=== PATIENT | female | born 1970 | race American Indian/Alaskan Native ===

== ENCOUNTER 2017-05-06 17:33 | Emergency (ER) | payer OTHER, BC ==
[2017-05-06 17:33] VITALS: BMI 40.7
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
[2017-05-06 19:26] VITALS: BP 113/67; PULSE 60; RESP 16; TEMP 98.5; O2SAT 96
--- NOTE | 2017-05-07 08:12 | RAD ---
PROCEDURE: Right Hip with pelvis Radiographs. HISTORY: hip pain COMPARISON: None. FINDINGS: BONES: Pelvic ring appears intact limited degenerate change identified in the bilateral hip joints. No suspicious lytic or blastic change. Pubic symphysis appears intact. There is no fracture at the right hip. JOINTS: No dislocation of the right hip. SOFT TISSUES: Inferior pelvic soft tissues are identified bilaterally which may reflect phleboliths. OTHER FINDINGS: None. IMPRESSION: No fracture dislocation of the right hip is appreciate with the pelvic ring appearing intact. Mild bilateral hip joint degenerative changes are identified.
--- NOTE | 2017-05-07 08:16 | RAD ---
PROCEDURE: Radiographs of the Lumbar Spine. HISTORY: back pain COMPARISON: No prior. FINDINGS: BONES: Normal lumbar curvature is appreciate however the frontal view suggests limited levoscoliosis or possible simulated scoliosis related to guarding. No suspicious lytic or blastic change. No spondylolisthesis identified DISC SPACES: Mild disc height loss is seen at L3-4 compatible degenerative disc disease. OTHER FINDINGS: None. IMPRESSION: Limited degenerative disc disease L3-4. Potential limited levoscoliosis versus scarring. No definite fracture or spondylolisthesis.
== END 2017-05-06 19:51 | disposition home or self-care (01) ==
LOC: ED 17:33
DX: M25.551 Pain in right hip (principal); M54.5 Low back pain
CPT/HCPCS: 72110; 73502; 96372; 99284; J1885

== ENCOUNTER 2018-03-29 20:58 | Inpatient (IN) | payer BC ==
--- NOTE | 2018-03-29 21:51 | ED PDOC ---
Arrival/HPI <Gonsalo Schofield - Last Filed: 03/30/18 00:03> - General Historian: Patient <Gianfranco Gautam - Last Filed: 03/30/18 14:31> - General Chief Complaint: Lower Extremity Problem/Injury Time Seen by Provider: 03/29/18 21:40 - History of Present Illness Narrative History of Present Illness (Text): 03/29/18 21:48 48 y/o female, pmh including gastritis/iron deficiency anemia, allergic to terbinafine, c/o shortness of breath x 2 weeks with chest pain and bilateral lower leg swelling x 6 days. Pt. stated that she woke up 6 days ago with bilateral lower extremity swelling and pain, worsened on the left lower extremity, no skin discoloration, no bruising, no rash, no numbness or tingling. Pt. also stated that she has been having chest pain and shortness of breath x 2 weeks, seen by the air quality engineer Dr. Palmer and refer to see the manager plant with normal PFT as per patient. Pt. stated that she was seen at the [facility] and left because they didn't perform the venuous doppler. Pt. has no other medical or psychological complaints. Pt. has no chest pain today. (Gianfranco Gautam) Past Medical History - Provider Review Nursing Documentation Reviewed: Yes - Tetanus Immunization Tetanus Immunization: Unknown - Past Medical History Past Medical History: No Previous - Cardiac Hx Cardiac Disorders: Yes Other/Comment: "PLEBOLITHS" - Pulmonary Hx Bronchitis: Yes Hx Sleep Apnea: Yes - Neurological Hx Neurological Disorder: Yes Hx Vertigo: Yes - HEENT Hx HEENT Disorder: No - Renal Hx Renal Disorder: No - Endocrine/Metabolic Hx Endocrine Disorders: No - Hematological/Oncological Hx Anemia: Yes - Integumentary Hx Dermatological Disorder: No - Musculoskeletal/Rheumatological Hx Arthritis: Yes - Gastrointestinal Hx Diverticulitis: Yes Hx Gastritis: Yes Hx Gastrointestinal Ulcer: Yes - Genitourinary/Gynecological Hx Genitourinary Disorders: Yes Other/Comment: UTERINE FIBROIDS - Psychiatric Hx Psychophysiologic Disorder: No Hx Substance Use: No - Surgical History Other/Comment: myomectomy - Anesthesia Hx Anesthesia: Yes Hx Anesthesia Reactions: No Hx Malignant Hyperthermia: No - Suicidal Assessment Feels Threatened In Home Enviroment: No <Gianfranco Gautam - Last Filed: 03/30/18 14:31> Family/Social History - Physician Review Nursing Documentation Reviewed: Yes Family/Social History: Unknown Family HX Smoking Status: Never Smoked Hx Alcohol Use: Yes Hx Substance Use: No Hx Substance Use Treatment: No <Gianfranco Gautam - Last Filed: 03/30/18 14:31> Allergies/Home Meds <Gonsalo Schofield - Last Filed: 03/30/18 00:03> <Gianfranco Gautam - Last Filed: 03/30/18 14:31> Allergies/Adverse Reactions: Allergies avocado Allergy (Verified 03/29/18 21:20) ANAPHYLAXIS terbinafine [From Lamisil] Allergy (Verified 03/29/18 21:20) SWELLING Home Medications: Home Meds Medication Instructions Recorded Confirmed Iron Ps Cmplx/Vit B12/FA 1 cap PO DAILY 03/29/18 03/29/18 [Poly-Iron 150 Forte 25 Mcg-1 mg-150 mg] Pantoprazole Sodium [Protonix] 40 mg PO DAILY 03/29/18 03/29/18 Review of Systems - Review of Systems Constitutional: absent: Fatigue, Fevers Eyes: absent: Vision Changes ENT: absent: Hearing Changes Respiratory: SOB. absent: Cough Cardiovascular: Chest Pain, Edema Gastrointestinal: absent: Abdominal Pain, Nausea, Vomiting Musculoskeletal: absent: Arthralgias, Back Pain Skin: absent: Rash, Pruritis Psychiatric: absent: Anxiety, Depression, Suicidal Ideation <Gianfranco Gautam - Last Filed: 03/30/18 14:31> Physical Exam Vital Signs Reviewed: Yes Temperature: Afebrile Blood Pressure: Normal Pulse: Regular Respiratory Rate: Normal Appearance: Positive for: Well-Appearing, Non-Toxic, Comfortable Pain Distress: None Mental Status: Positive for: Alert and Oriented X 3 - Systems Exam Head: Present: Atraumatic, Normocephalic Pupils: Present: PERRL Extroacular Muscles: Present: EOMI Conjunctiva: Present: Normal Mouth: Present: Moist Mucous Membranes Pharnyx: Present: Normal. No: ERYTHEMA, EXUDATE, TONSILS ENLARGED Nose (External): Present: Atraumatic. No: Abrasion, Contusion, Laceration, Lesions Nose (Internal): Present: Normal Inspection, No Active Bleeding. No: Rhinorrhea , Septal Hematoma, Epistaxis Neck: Present: Normal Range of Motion, Trachea Midline. No: Meningeal Signs, MIDLINE TENDERNESS, Paraspinal Tenderness, Lymphadenopathy Respiratory/Chest: Present: Clear to Auscultation, Good Air Exchange. No: Respiratory Distress, Accessory Muscle Use, Wheezes, Decreased Breath Sounds, Rales, Retracting, Rhonchi Cardiovascular: Present: Regular Rate and Rhythm, Normal S1, S2, Other (there is no pedal edema). No: Murmurs Abdomen: No: Tenderness, Distention, Peritoneal Signs, Rebound, Guarding Back: Present: Normal Inspection Upper Extremity: Present: Normal Inspection. No: Cyanosis, Edema Lower Extremity: Present: Normal Inspection, CALF TENDERNESS (left calf), NORMAL PULSES, Normal ROM, Kimberly's Sign (Left calf), Neurovascularly Intact, Capillary Refill < 2 s. No: Edema, Tenderness, Swelling, Deformity, Temperature Abnormalties Neurological: Present: GCS=15, CN II-XII Intact, Speech Normal, Motor Func Grossly Intact, Gait Normal, Memory Normal Skin: Present: Warm, Dry, Normal Color. No: Rashes Psychiatric: Present: Alert, Oriented x 3, Normal Insight, Normal Concentration <Gianfranco Gautam - Last Filed: 03/30/18 14:31> Vital Signs Temp Pulse Resp BP Pulse Ox 03/30/18 01:40 98.2 F 82 16 118/73 98 03/29/18 23:58 78 16 120/64 98 03/29/18 21:32 98.5 F 77 18 123/77 97 Medical Decision Making <Gonsalo Schofield - Last Filed: 03/30/18 00:03> - Lab Interpretations I have reviewed the lab results: Yes - RAD Interpretation Heel Slugger: Radiologist - EKG Interpretation Interpreted by ED Physician: Yes Type: 12 lead EKG <Gianfranco Gautam - Last Filed: 03/30/18 14:31> ED Course and Treatment: 03/29/18 22:05 Differential: DVT vs. PE Vs. Pneumonia vs. CHF vs. Electrolyte imbalance vs. rhabdomylosis -Labs/cardiac enzyme/dimer/CK/ua -Bilateral LE Venuous doppler -CXR -EKG -manager med surg -Observe and reassess 03/30/18 00:14 -Urine hcg is negative -EKG: NSR @ 67 BPM, no ST elevation or depression, no T wave inversion. -Bilateral lower extremities venuous doppler: as per preliminary report, no acute DVT -Chest xray show no active disease -CTA angiogram There is pulmonary embolism involving the right lower lobe segmental branches seen from image [id number] series 3. And from image 71 -74. -Labs show no acute findings -Troponin is negative -BNP is negative -Dimer 469, CTA added -UA ordered and pending -Pt. has stool coloration or rectal bleeding, Lovenox ordered. -All labs/radiology results discussed with the patient including the diagnosis, agreed to be admitted, pmd is Dr. Jan Santana from [place], [place]. Page out to Dr. Buenrostro -Pt. needs to be admitted for the anticoagulation and the cause of this hypercoagulable disease. 03/30/18 00:24 -Dr. Schofield spoke to Dr. Buenrostro, I spoke to the medical delivery technician, discussed about the case/labs/radiology result, agreed on lovenox and admission. (Gianfranco Gautam) - Lab Interpretations Lab Results: 03/29/18 22:06 03/29/18 22:06 Lab Results 03/29/18 22:06: NT-Pro-B Natriuret Pep 19.4 03/29/18 22:06: WBC 5.6 D, RBC 4.55, Hgb 9.9 L, Hct 32.5 L, MCV 71.4 L D, MCH 21.8 L, MCHC 30.5 L, RDW 16.9 H, Plt Count 300, MPV 10.3, Gran % 53.6, Lymph % ( Auto) 31.3, [place] % (Auto) 10.9 H, Eos % (Auto) 3.8, Baso % (Auto) 0.4, Gran # 3.00, Lymph # (Auto) 1.8, [place] # (Auto) 0.6, Eos # (Auto) 0.2, Baso # (Auto) 0.02 03/29/18 22:06: Sodium 139, Potassium 4.1, Chloride 104, Carbon Dioxide 24, Anion Gap 15, BUN 13, Creatinine 1.0, Est GFR ( Amer) > 60, Est GFR (Non- Af Amer) 60, Random Glucose 92, Calcium 9.3, Total Bilirubin 0.3, AST 24, ALT 34 , Alkaline Phosphatase 68, Lactate Dehydrogenase 506, Total Creatine Kinase 107 , Troponin I < 0.01, Total Protein 8.0, Albumin 4.1, Globulin 3.9, Albumin/ Globulin Ratio 1.1 03/29/18 22:06: PT 12.4, INR 1.09, APTT 28.1, D-Dimer, Quantitative 469 H - RAD Interpretation Radiology Orders: 03/29/18 21:50 CHEST PORTABLE [RAD] Stat DUPLEX LOWER EXTRM VEIN BILAT [US] Stat 03/29/18 22:31 ANGIO CHEST PE PROTOCOL [CT] Stat Bilateral lower extremities venuous doppler: as per preliminary report, no acute DVT Chest xray: no active disease CTA Chest: Pulmonary arteries: There is pulmonary embolism involving the right lower lobe segmental branches seen from image 53-55 series 3. And from image 71 -74. Aorta: No acute findings. No thoracic aortic aneurysm. Lungs: Unremarkable. No mass. No consolidation. Pleural space: Unremarkable. No significant effusion. No pneumothorax. Heart: Unremarkable. No cardiomegaly. No significant pericardial effusion. No evidence of RV dysfunction. Bones/joints: No acute fracture. No dislocation. Soft tissues: Unremarkable. Lymph nodes: Unremarkable. No enlarged lymph nodes. IMPRESSION: There is pulmonary embolism involving the right lower lobe segmental branches seen from image 53-55 series 3. And from image 71 -74. Thank you for allowing us to participate in the care of your patient. Dictated and Authenticated by: Bouchra June MD 03/29/2018 11:54 PM Eastern Time ([place] & [place]) (Gianfranco Gautam) - EKG Interpretation EKG Interpretation (Text): 03/29/18 23:55 -EKG: NSR @ 67 BPM, no ST elevation or depression, no T wave inversion. (Gianfranco Gautam) - Medication Orders Current Medication Orders: Acetaminophen (Tylenol 325mg Tab) 650 mg PO Q6H PRN PRN Reason: Pain, moderate (4-7) Amoxicillin (Amoxil 500 Mg Cap) 1,000 mg PO Q12 SARY PRN Reason: Protocol Stop: 04/12/18 22:01 Last Admin: 03/30/18 11:41 Dose: 1,000 mg Atorvastatin Calcium (Lipitor) 40 mg PO DIN SARY Clarithromycin (Biaxin Filmtab) 500 mg PO Q12 SARY PRN Reason: Protocol Stop: 04/12/18 22:01 Last Admin: 03/30/18 12:22 Dose: 500 mg Docusate Sodium (Colace) 100 mg PO TID [facility] Last Admin: 03/30/18 11:42 Dose: 100 mg Last Bowel Movement Document 03/30/18 11:42 [facility] (Rec: 03/30/18 11:42 [id number] Last Bowel Movement Last Bowel Movement 03/29/18 Enoxaparin Sodium (Lovenox) 115 mg SC Q12H SARY PRN Reason: Protocol Furosemide (Lasix) 20 mg IVP DAILY [facility] Last Admin: 03/30/18 11:39 Dose: 20 mg MAR Blood Pressure Document 03/30/18 11:39 SG (Rec: 03/30/18 11:39 SG [id number]) Blood Pressure Blood Pressure (100/60-150/90) 108/62 IVP Administration Document 03/30/18 11:39 SG (Rec: 03/30/18 11:39 SG [id number]) Charges for Administration # of IVP Administrations 1 Iron Sucrose 200 mg/ Sodium (Chloride) 110 mls @ 110 mls/hr IVPB DAILY SAYR Stop: 04/03/18 10:59 Last Admin: 03/30/18 11:48 Dose: 110 mls/hr eMAR Start Stop Document 03/30/18 11:48 [facility] (Rec: 03/30/18 11:48 [id number][facility] Intravenous Solution Start Date 03/30/18 Start Time 11:48 End Date 03/30/18 End time 12:55 Total Infusion Time 67 Levalbuterol HCl (Xopenex) 0.63 mg IH [id number] [facility] Last Admin: 03/30/18 14:09 Dose: Not Given Non-Admin Reason: Patient Refused Pantoprazole Sodium (Protonix Ec Tab) 40 mg PO BID [facility] Last Admin: 03/30/18 08:20 Dose: 40 mg Polyethylene Glycol (Miralax) 17 gm PO DAILY [facility] Last Admin: 03/30/18 11:41 Dose: 17 gm Potassium Chloride (K-Dur 20 Meq Er Tab) 20 meq PO BRK [facility] Last Admin: 03/30/18 11:41 Dose: 20 meq Discontinued Medications Enoxaparin Sodium (Lovenox) 115 mg SC STAT STA PRN Reason: Protocol Stop: 03/30/18 00:12 Last Admin: 03/30/18 00:43 Dose: 115 mg Subcutaneous Administrations Document 03/30/18 00:43 IT (Rec: 03/30/18 00:44 IT [id number]) Injection Site MAR Injection Site Left Abdomen Charges for Administration # of Subcutaneous Administrations 1 Metronidazole (Flagyl) 250 mg PO Q6H SARY PRN Reason: Protocol Last Admin: 03/30/18 02:45 Dose: Not Given Non-Admin Reason: Nausea Metronidazole (Flagyl) 250 mg PO Q6H [facility] PRN Reason: Protocol Last Admin: 03/30/18 05:25 Dose: 250 mg Multivitamins (Thera Tab) 1 tab PO 0800 [facility] Last Admin: 03/30/18 08:51 Dose: 1 tab Pantoprazole Sodium (Protonix Ec Tab) 40 mg PO 0600 [facility] - PA / PRODUCTION RECORDER / Resident Statement ADRIANE has reviewed & agrees with the documentation as recorded. ADRIANE has examined the patient and agrees with the treatment plan. <Gonsalo Schofield - Last Filed: 03/30/18 00:03> - PA / PRODUCTION RECORDER / Resident Statement ADRIANE has reviewed & agrees with the documentation as recorded. ADRIANE has examined the patient and agrees with the treatment plan. <Gianfranco Gautam - Last Filed: 03/30/18 14:31> Disposition/Present on Arrival <Gonsalo Schofield - Last Filed: 03/30/18 00:03> - Present on Arrival Any Indicators Present on Arrival: No History of DVT/PE: No History of Uncontrolled Diabetes: No Urinary Catheter: No History of Decub. Ulcer: No History Surgical Site Infection Following: None - Disposition Have Diagnosis and Disposition been Completed?: Yes Disposition Time: 00:15 Patient Plan: Admission, Telemetry <Gianfranco Gautam - Last Filed: 03/30/18 14:31> - Disposition Diagnosis: Pulmonary embolism, Shortness of breath Disposition: HOSPITALIZED Patient Problems: Current Active Problems Problem Status Onset Pulmonary embolism Acute Shortness of breath Acute Condition: STABLE
[2018-03-29 22:23] LABS: BASO # 0.02 K/mm3 (0.0-2.0); BASO % 0.4 % (0.0-3.0); EOS # 0.2 (0.0-0.7); EOS % 3.8 % (1.5-5.0); GRAN % 53.6 % (50.0-68.0); HEMOGLOBIN 9.9 g/dL (12.0-16.0); LYMPH # 1.8 (1.2-3.4); LYMPH % 31.3 % (22.0-35.0); MEAN CELL VOLUME 71.4 fl (80.0-105.0); MEAN CORPUSCULAR HEMOGLOBIN 21.8 pg (25.0-35.0); MEAN CORPUSCULAR HGB CONC 30.5 g/dl (31.0-37.0); MEAN PLATELET VOLUME 10.3 fl (7.0-11.0); MONO # 0.6 (0.1-0.6); MONO % 10.9 % (1.0-6.0); RBC 4.55 10^6/uL (3.5-6.1); RED CELL DISTRIBUTION WIDTH 16.9 % (11.5-14.5); WHITE BLOOD COUNT 5.6 10^3/ul (4.5-11.0)
[2018-03-29 22:25] LABS: BLOOD UREA NITROGEN 13 mg/dL (7-21); CALCIUM 9.3 mg/dL (8.4-10.5); GFR AFRICAN-AMERICAN > 60; GFR NON-AFRICAN AMERICAN 60
[2018-03-29 22:26] LABS: ALB/GLOB RATIO 1.1 (1.1-1.8); ALBUMIN 4.1 g/dL (3.0-4.8); ALT/SGPT 34 U/L (7-56); AST/SGOT 24 U/L (14-36)
[2018-03-29 22:30] LABS: INR 1.09; PARTIAL THROMBOPLASTIN TIME 28.1 Seconds (25.1-36.5); PROTHROMBIN TIME 12.4 SECONDS (9.4-12.5)
[2018-03-29 22:37] LABS: TROPONIN I < 0.01 ng/mL
[2018-03-29] MEDS ORDERED: Iodixanol 320 MG/ML 100 ML BOTTLE IV ONE (22:49)
[2018-03-30] MEDS ORDERED: Enoxaparin 120 mg Syringe SC STA (00:11)
[2018-03-30 02:32] VITALS: BMI 43.6
--- NOTE | 2018-03-30 02:39 | CP.PCM.HP ---
<Frankie De La Rosa - Last Filed: 03/30/18 05:30> History of Present Illness - History of Present Illness History of Present Illness: Frankie De La Rosa, PGY-1 History and Physical for Dr. Buenrostro CC: Shortness of Breath HPI: Ms. Miranda is a 48 year old female with PMHx of stomach ulcers 2/2 H. pylori (diagnosed 3 weeks ago on EGD per patient), plebolyth in 05/03, Fe deficinecy anemia, diverticulitis, hiatal hernia, hemmorhoids, uterine fibroids s/p lapromyomectomy who presents with lower extremity swelling and shortness of breath. Patient has noted a month long stint of lethargy and shortness of breath , even with minimal exertion and occasionally at rest. Patient has been unable to ambulate as frequently or to the same extent as previous. Patient can not point to something that caused this change, but stated that starting on the Fe pill has helped rejuvenate her. Patient denied any recent long travel trips or extended periods of immobility. In the ED patient received therapeutic Lovenox. No cardiomegaly. CXR and Extremity U/S were ordered. Chest CT: PE in RLL segmental branches PMHx: stomach ulcers 2/2 H. 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 Montoya ([place]) Cardio: Dr. Palmer Pulm: Dr. Fernando ORACLE SECURITY CONSULTANT: Dr. Fournier Present on Admission - Present on Admission Any Indicators Present on Admission: Yes History of DVT/PE: Yes Past Patient History - Tetanus Immunizations Tetanus Immunization: Unknown - Past Social History Smoking Status: Never Smoked - CARDIAC Hx Cardiac Disorders: Yes Hx Hypercholesterolemia: Yes - PULMONARY Hx Respiratory Disorders: Yes Hx Bronchitis: Yes Hx Pneumonia: Yes (July 2017) Hx Sleep Apnea: Yes - NEUROLOGICAL Hx Neurological Disorder: Yes Hx Dizziness: Yes - HEENT Hx HEENT Problems: No - RENAL Hx Chronic Kidney Disease: No - ENDOCRINE/METABOLIC Hx Endocrine Disorders: No - HEMATOLOGICAL/ONCOLOGICAL Hx Blood Disorders: Yes Hx Anemia: Yes (Iron Deficiency) - INTEGUMENTARY Hx Dermatological Problems: No - MUSCULOSKELETAL/RHEUMATOLOGICAL Hx Musculoskeletal Disorders: Yes Hx Arthritis: Yes (Hips) Hx Falls: No - GASTROINTESTINAL Hx Gastrointestinal Disorders: Yes (Gastritis) Hx Diverticulitis: Yes Hx Ulcer: Yes - GENITOURINARY/GYNECOLOGICAL Hx Genitourinary Disorders: No - PSYCHIATRIC Hx Psychophysiologic Disorder: No Hx Substance Use: No - SURGICAL HISTORY Hx Surgeries: Yes (Mini Lapromyolectomy) - ANESTHESIA Hx Anesthesia: Yes Hx Anesthesia Reactions: No Hx Malignant Hyperthermia: No Meds Allergies/Adverse Reactions: Allergies Allergy/AdvReac Type Severity Reaction Status Date / Time avocado Allergy ANAPHYLAXIS Verified 03/29/18 21:20 terbinafine [From Lamisil] Allergy SWELLING Verified 03/29/18 21:20 Physical Exam - Constitutional Appears: Well, Non-toxic, No Acute Distress - Head Exam Head Exam: ATRAUMATIC, NORMAL INSPECTION, NORMOCEPHALIC - Eye Exam Eye Exam: EOMI, Normal appearance Pupil Exam: PERRL - ENT Exam ENT Exam: Mucous Membranes Moist - Neck Exam Neck exam: Negative for: Lymphadenopathy, Tenderness - Respiratory Exam Respiratory Exam: Wheezes (R bases), NORMAL BREATHING PATTERN. absent: Prolonged Expiratory Phase, Rales, Rhonchi - Cardiovascular Exam Cardiovascular Exam: RRR, +S1, +S2 - GI/Abdominal Exam GI & Abdominal Exam: Soft. absent: Distended, Firm, Guarding, Organomegaly, Pulsatile Mass, Rebound, Tenderness - Back Exam Back exam: absent: CVA tenderness (L), CVA tenderness (R) - Neurological Exam Neurological exam: Alert, Oriented x3 - Psychiatric Exam Psychiatric exam: Anxious, Normal Affect Results - Vital Signs Recent Vital Signs: Last Vital Signs Temp 97.9 F 03/30/18 02:03 Pulse 72 03/30/18 02:03 Resp 20 03/30/18 02:03 BP 132/78 03/30/18 02:03 Pulse Ox 98 03/30/18 01:40 - Labs Result Diagrams: 03/29/18 22:06 03/29/18 22:06 Assessment & Plan - Assessment and Plan (Free Text) Assessment: Assessment: Ms. Miranda is a 81 year old female who presented with stomach ulcers 2/2 H. pylori (diagnosed 3 weeks ago on EGD per patient), plebolyth in 05/03, Fe deficinecy anemia, diverticulitis, hiatal hernia, hemmorhoids, uterine fibroids s/p lapromyomectomy who presented with SOB and LE swelling that began on Saturday 03/24. Plan: Unprovoked Pulm Embolism 2/2 hypercoagulable state of unknown etiology - CT angio: pulm embolism in RLL segmental branches - coag studies wnl - no previous hx of clots - f/u final reads of CXR and Duplex LE - f/u ABG - f/u protein c & protein s, antithrombin 3, factor 5 Leiden, lupus anticoagulant, fibrinogen, anticardiolipin antibodies, - f/u TSH and free T4 - f/u lipid panel and a1c - f/u Vit D level - f/u Echo to assess RV dysfunction - began therapeutic Lovenox 1 mg/kg BID - f/u AM labs Gastritis 2/2 H. pylori infection - continue on week 3 of therapy with Metronidazole, Doxycycline, and Pantoprazole - monitor H/H GI/DVT ppx: A/C with Lovenox SCD's Case reviewed and plan discussed with Dr. Buenrostro. Frankie De La Rosa, PGY-1 <Esequiel Buenrostro U - Last Filed: 04/01/18 17:22> Results - Vital Signs Recent Vital Signs: Last Vital Signs Temp 98.1 F 04/01/18 14:00 Pulse 98 H 04/01/18 14:00 Resp 20 04/01/18 14:00 BP 131/88 04/01/18 14:00 Pulse Ox 98 04/01/18 14:00 - Labs Result Diagrams: 04/01/18 05:45 04/01/18 05:45 Labs: Laboratory Results - last 24 hr 03/30/18 04/01/18 04/01/18 03:20 00:01 05:45 WBC 5.3 RBC 4.43 Hgb 9.4 L Hct 32.0 L MCV 72.2 L MCH 21.2 L MCHC 29.4 L RDW 17.2 H Plt Count 274 MPV 10.6 Gran % 46.7 L Lymph % (Auto) 40.2 H [place] % (Auto) 11.9 H Eos % (Auto) 0.8 L Baso % (Auto) 0.4 Gran # 2.47 Lymph # (Auto) 2.1 [place] # (Auto) 0.6 Eos # (Auto) 0.0 Baso # (Auto) 0.02 Sodium Potassium Chloride Carbon Dioxide Anion Gap BUN Creatinine Est GFR ( Amer) Est GFR (Non-Af Amer) Random Glucose Calcium Total Bilirubin Direct Bilirubin AST ALT Alkaline Phosphatase Total Protein Albumin Globulin Albumin/Globulin Ratio Urine Color Yellow Urine Appearance Clear Urine pH 6.0 Ur Specific [place] <= 1.005 Urine Protein Negative Urine Glucose (UA) Negative Urine Ketones Negative Urine Blood Negative Urine Nitrate Negative Urine Bilirubin Negative Urine Urobilinogen 0.2 Ur Leukocyte Esterase Negative Screen Negative 04/01/18 05:45 WBC RBC Hgb Hct MCV MCH MCHC RDW Plt Count MPV Gran % Lymph % (Auto) [place] % (Auto) Eos % (Auto) Baso % (Auto) Gran # Lymph # (Auto) [place] # (Auto) Eos # (Auto) Baso # (Auto) Sodium 139 Potassium 3.9 Chloride 103 Carbon Dioxide 27 Anion Gap 13 BUN 12 Creatinine 0.9 Est GFR ( Amer) > 60 Est GFR (Non-Af Amer) > 60 Random Glucose 94 Calcium 9.1 Total Bilirubin 0.3 Direct Bilirubin 0.1 AST 34 ALT 27 Alkaline Phosphatase 65 Total Protein 7.2 Albumin 3.7 Globulin 3.5 Albumin/Globulin Ratio 1.1 Urine Color Urine Appearance Urine pH Ur Specific [place] Urine Protein Urine Glucose (UA) Urine Ketones Urine Blood Urine Nitrate Urine Bilirubin Urine Urobilinogen Ur Leukocyte Esterase Screen Attending/Attestation - Attestation I have personally seen and examined this patient.: Yes I have fully participated in the care of the patient.: Yes I have reviewed all pertinent clinical information: Yes Notes (Text): Please see/read my dictated notes.
[2018-03-30 04:16] LABS: FREE T4 1.36 ng/dL (0.78-2.19)
[2018-03-30] MEDS ORDERED: Pantoprazole 40 mg EC Tab PO SCH (06:00)
[2018-03-30 06:46] LABS: ARTERIAL BLOOD GAS HCO3 23.5 mmol/L (21-28); ARTERIAL BLOOD GAS HEMOGLOBIN 9.3 g/dL (11.7-17.4); ARTERIAL BLOOD GAS O2 CAPACITY 12.9 mL/dl (16-24); ARTERIAL BLOOD GAS O2 CONTENT 12.8 ML/dl (15-23); ARTERIAL BLOOD GAS O2 SAT 99.4 % (95-98); ARTERIAL BLOOD GAS PCO2 33 mm/Hg (35-45); ARTERIAL BLOOD GAS PH 7.46 (7.35-7.45); ARTERIAL BLOOD GAS TCO2 24.5 mmol.L (22-28)
[2018-03-30 07:36] LABS: IRON 29 ug/dL (45-180)
[2018-03-30 07:45] LABS: % IRON SATURATION 8 % (20-55); TOTAL IRON BINDING CAPACITY 357 ug/dL (265-497)
[2018-03-30] MEDS ORDERED: Multivitamin Therapeutic Tab PO SCH (08:00)
[2018-03-30] MEDS: Pantoprazole 40 mg EC Tab PO SCH ×2 (08:20→19:05)
--- NOTE | 2018-03-30 08:29 | CT ---
Date of service: 03/29/2018 PROCEDURE: CT Chest with contrast (Pulmonary Angiogram) HISTORY: elevated dimer, shortness of breath COMPARISON: None available. TECHNIQUE: Axial computed tomography images were obtained of the chest in the pulmonary arterial phase of enhancement. Coronal and sagittal reformatted images were created and reviewed. Intravenous contrast dose: 150 cc of Omni 350 Radiation dose: Total exam DLP = 556 mGy-cm. This CT exam was performed using one or more of the following dose reduction techniques: Automated exposure control, adjustment of the mA and/or kV according to patient size, and/or use of iterative reconstruction technique. FINDINGS: PULMONARY ARTERIES: Small pulmonary emboli are seen in the distal segmental branches of the right lower lobe. The finding is seen on image [id number] series 3. There are no large central or proximal emboli AORTA: No acute findings. No thoracic aortic aneurysm. LUNGS: Unremarkable. No nodule, mass or pulmonary consolidation. PLEURAL SPACES: Unremarkable. No effusion or pneumothorax. HEART: Unremarkable. No cardiomegaly. No significant pericardial effusion. LYMPH NODES: No lymphadenopathy. BONES, CHEST WALL: Unremarkable. No fracture or destructive lesion OTHER FINDINGS: The report concurs with the preliminary [facility] report IMPRESSION: Small pulmonary emboli are seen in the distal segmental branches of the right lower lobe. The finding is seen on image [id number] series 3. There are no large central or proximal emboli
--- NOTE | 2018-03-30 09:12 | CARD ---
APPROVED REPORT Date of service: 03/29/2018 EKG Measurement Heart [id number] <Conclusion> Normal sinus rhythm Possible Left atrial enlargement Low voltage QRS Borderline ECG
--- NOTE | 2018-03-30 09:21 | RAD ---
Date of service: 03/29/2018 HISTORY: shortness of breath COMPARISON: 02/03/2015 FINDINGS: LUNGS: No active pulmonary disease. PLEURA: No significant pleural effusion identified, no pneumothorax apparent. CARDIOVASCULAR: Normal. OSSEOUS STRUCTURES: No significant abnormalities. VISUALIZED UPPER ABDOMEN: Normal. OTHER FINDINGS: None. IMPRESSION: No active disease.
[2018-03-30] MEDS ORDERED: [UNRECOGNIZED DRUG - OTHER] PO SCH (10:00)
[2018-03-30] MEDS ORDERED: VIT B12 PO SCH (10:00)
[2018-03-30] MEDS ORDERED: IRON PS CMPLX PO SCH (10:00)
--- NOTE | 2018-03-30 10:52 | US ---
HISTORY: Leg pain and swelling. Evaluate for DVT PHYSICIAN(S): Uzair Mills MD. TECHNIQUE: Duplex sonography and color-flow Doppler with graded compression were used to evaluate the deep venous systems of both lower extremities. FINDINGS: The visualized deep venous systems of both lower extremities are sonographically normal and compressible. Normal wave forms and augmentation are seen. There is no sonographic evidence for deep venous thrombosis in the visualized segments of both lower extremities. IMPRESSION: No sonographic evidence for deep venous thrombosis in the visualized segments of both lower extremities.
[2018-03-30] MEDS: Potassium Chloride 20 mEq ER Tab PO SCH (11:41)
[2018-03-30] MEDS: POLYETHYLENE GLYCOL 3350 17 GM/Dose PACKET PO SCH (11:41)
--- NOTE | 2018-03-30 12:10 | HP ---
Copied To: Esequiel Buenrostro MD Attending MD: Esequiel Buenrostro MD HISTORY OF PRESENT ILLNESS: The patient is a 48-year-old female presented to the emergency room with 1-week complaints of bilateral leg pain and swelling and calf pain, left more than the right. According to the ER physician and physician fitness assistant evaluation, the patient complained of shortness of breath for 2 weeks with chest pain and bilateral lower extremity swelling for a week and also complained of bilateral lower extremity pain with left more than the right. The patient stated that her symptoms have been progressively getting worse for the last 2 weeks. The patient was seen by a doctor in [place]. The patient was advised to see sieve repairer. Had a normal PFT. A breathing test done. The patient was seen then later on in the [facility] Emergency Room, but the patient left because they did not perform the ultrasound of the legs. According to the certified medical dosimetrist evaluation, the patient presented with above symptoms. The patient also complains of chronic fatigue, tiredness, lethargy for which the patient attributes her symptoms to anemia. The patient was recently prescribed iron tablets. CODE STATUS: Full code. LIVING WILL ADVANCE DIRECTIVE: None. HEIGHT: 5 feet 4. WEIGHT: 237. BMI: 41. HOME MEDICATION: The patient is on treatment for H. pylori with doxycycline, Flagyl and Protonix and Poly-Iron Forte 150. SOCIAL HISTORY: The patient denies any substance abuse. Social alcohol user. Denies any smoking. Denies communicable transmissible disease. 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 FAMILY HISTORY: The patient's family history is positive for hypertension and father has prostate cancer. MENSTRUAL HISTORY: The patient reports heavy menses and irregular menses. The patient is 0, para 0 and sexually inactive due to cultural believes. Occupational history as mentioned above. PAST MEDICAL AND SURGICAL HISTORY: History of uterine fibroid, history of menorrhagia, history of diverticulitis, history of endoscopy done recently, diagnosed with gastric ulcer and H. pylori gastritis and duodenitis, history of iron-deficiency anemia, history of hiatal hernia, history of hemorrhoids, history of mini myomectomy for menorrhagia and uterine fibroid, history of H. pylori gastritis. Past medical history is significant for history of mini-laparo myomectomy. The patient's past medical history is also significant for constipation. ALLERGIES: TO AVOCADO AND TERBINAFINE. PHYSICAL EXAMINATION: GENERAL: The patient is seen in room 265, bed 1. The patient is lying in the bed comfortable. VITAL SIGNS: T-max is 98.2; heart rate 78, 82, 71; blood pressure 120/64, 132/78, 120/64. Telemetry shows sinus rhythm. The patient is seen lying in the bed. HEENT: Head examination normocephalic, atraumatic. HEENT examination shows pinkish pale conjunctivae. Dry oral mucosa. No facial asymmetry noted. NECK: No neck rigidity. CHEST: Kyphosis. LUNGS: Shows no rales, crackles or wheezing. Occasional rhonchi noted in the upper lung tinajero. CARDIOVASCULAR: S1, S2. Regular rhythm. Questionable soft systolic murmur, left sternal border, right second intercostal space, left second intercostal space. ABDOMEN: Soft. Mild epigastric periumbilical tenderness noted. No guarding. No rigidity. No rebound tenderness. No hepatosplenomegaly noted. GENITALIA: Female. RECTAL: Deferred. EXTREMITY: Shows positive swelling and pitting edema of the bilateral lower extremity, left more than the right. Positive bilateral calf tenderness noted. MUSCULOSKELETAL: Shows a body mass index of 41. NEUROLOGICAL: The patient is alert, awake, oriented x3. Cranial nerves II through XII grossly intact. Gait examination is not tested. VASCULAR: Palpable pulses. PSYCHIATRIC: Negative for anxiety, depression. Negative for suicidal or homicidal ideation. Negative for auditory, visual hallucination. DIAGNOSTICS: Hemoglobin and hematocrit 9.9 and 32.5, platelets 300,000. PT/PTT 12.4 and 28.1. D-dimer was elevated at 469. The patient had an ABG done pH of 7.446, pCO2 of 33, pO2 of 97, bicarb 23, saturation of 99.4. Sodium 139, potassium 4.1, chloride 104, CO2 of 24, anion gap 15, BUN 13, creatinine 1, GFR greater than 60, glucose 92, calcium 9.3, phosphorus 3, magnesium 1.9, iron 29, iron saturation 8. LFTs are normal. Troponin is negative. BNP is negative. Cholesterol 195, LDL 87, HDL 64. TSH is 3.54. The patient was evaluated by the emergency room physician and the ER physician fitness assistant. The patient had a chest x-ray, CT chest and venous Doppler of the lower extremity was done. The patient had an EKG done in the emergency room. The patient was evaluated in the emergency room by the ER physician and ER physician fitness assistant. The patient was later on evaluated by the certified medical dosimetrist, . IMPRESSION AND PLAN: A 48-year-old female with past medical history of uterine fibroid, menorrhagia, history of mini-laparotomy myomectomy, history of diverticulitis, gastritis, Helicobacter pylori gastric ulcer, history of iron-deficiency anemia, history of irregular menstruation and heavy menstruation. Presents with 2 weeks complains of shortness of breath, chest pain, bilateral lower extremity swelling, calf pain and leg pain. Impression; 1. Right lower lobe pulmonary embolism in the distal segmental branches of the right lower lobe, probably unprovoked, etiology in question at that time. 2. Questionable left atrial enlargement. 3. Elevated D-dimer. 4. Microcytic iron-deficiency anemia. 5. History of Helicobacter pylori gastritis and gastric ulcer, history of diverticulitis, history of iron-deficiency anemia, history of menorrhagia, history of hiatal hernia, history of uterine fibroid, history of laparotomy myomectomy for uterine fibroid. Plan at this time, the patient is admitted to telemetry floor from the emergency room. The patient has been ordered ferritin level, hemoglobin A1c, hepatitis panel, vitamin D 25-hydroxy, vitamin B12 ordered, repeat CMP, LFTs, magnesium, CBC ordered. The patient has autoimmune workup and hypercoagulable workup ordered. Consultation gastroenterology and hematology ordered. The patient is started on H. pylori treatment. The patient is on Colace 100 three times a day. The patient is started on Venofer 200 IV daily. The patient is started on Lasix 20 IV daily, potassium 20 p.o. daily, Lipitor 40 mg daily, Lovenox mg subcu every 12, MiraLax 17 g daily, Protonix 40 mg twice a day, Tylenol p.r.n., Xopenex nebulizer 0.63 mg every 6 hours. The patient is awaiting for a final an official results of the venous Doppler, which was negative preliminary. The patient is on oxygen 2 L continuous. Echo with Doppler ordered. Heart-healthy diet ordered. The patient has been ordered out of bed, IRVIN stockings, SCDs. Stool occult blood ordered. At present, the patient is admitted to telemetry. The patient is awaiting further diagnostic therapeutic intervention, is awaiting Gastroenterology, Hematology evaluation. The patient was explained about the details of her medical condition and all the treatment options scenarios discussed and explained to the patient at length. Risks, consequences of treatment and the medical condition were also explained to the patient in layman's language. All questions concerned answered to her satisfaction. At present, as mentioned, further management will be dependent upon the patient's clinical condition, hemodynamic status and as per the patient's response to therapeutic intervention and as per the patient's diagnostic and therapeutic intervention and as per Gastroenterology and Hematology recommendation and evaluation. Dictated and electronically signed, not read. Esequiel Buenrostro MD
[2018-03-30 12:56] LABS: HEPATITIS B SURFACE AG Negative (NEGATIVE)
[2018-03-30 13:01] LABS: HEPATITIS B CORE AB NEGATIVE (NEGATIVE)
[2018-03-30 13:03] LABS: HEPATITIS A IGM NEGATIVE (NEGATIVE)
[2018-03-30 13:10] LABS: FERRITIN 6.1 ng/mL
[2018-03-30 13:13] LABS: HEPATITIS C ANTIBODY NEGATIVE (NEGATIVE)
[2018-03-30 13:40] LABS: FOLATE 11.1 ng/mL
--- NOTE | 2018-03-30 14:02 | CP.PCM.PN ---
<Abiel Taylor - Last Filed: 03/30/18 13:56> Subjective - Date & Time of Evaluation Date of Evaluation: 03/30/18 Time of Evaluation: 13:56 - Subjective Subjective: House doctor called to bedside by nurse due to increased fatigued noted by patient. Patient admitted for pulmonary embolism and has history of iron deficiency anemia. Per nursing, patient was self sufficient earlier today. Patient states that she was sitting on the side of her bed eating lunch when she began to feel lethargic and fatigued. Patient states she slid to floor on her knees, but did not fall when the staff found her. Patient denied any trauma , but states that she feels very tired, short of breath, and has a hot sensation in her legs similar to when she presented to the ED. Chart was reviewed and it was noted that no DVT found on US and patient is currently receiving therapeutic anticoagulation. Vitals reviewed and were WNL. Orthostatics were WNL. Blood glucose was 106. Labs reviewed which showed anemia, in which patient is receiving IV iron. Physical Exam unremarkable. Assessment/Plan: 48 yo F with increasing fatigue, lethargy, and possible near syncopal episode. - Orthostatics negative - CBC - EKG - Troponin - Head CT - UDS - Neuro checks - Seizure precautions - Discussed event and plan in detail with attending, Dr. Buenrostro. Objective - Vital Signs/Intake and Output Vital Signs (last 24 hours): Temp Pulse Resp BP Pulse Ox 99.4 F 84 19 108/60 99 03/30/18 12:00 03/30/18 12:00 03/30/18 12:00 03/30/18 12:00 03/30/18 06:00 Intake and Output: 03/30/18 03/30/18 06:59 18:59 Intake Total 400 Output Total 0 Balance 400 - Medications Medications: Current Medications Acetaminophen (Tylenol 325mg Tab) 650 mg PO Q6H PRN PRN Reason: Pain, moderate (4-7) Amoxicillin (Amoxil 500 Mg Cap) 1,000 mg PO Q12 SARY PRN Reason: Protocol Stop: 04/12/18 22:01 Last Admin: 03/30/18 11:41 Dose: 1,000 mg Atorvastatin Calcium (Lipitor) 40 mg PO DIN SARY Clarithromycin (Biaxin Filmtab) 500 mg PO Q12 SARY PRN Reason: Protocol Stop: 04/12/18 22:01 Last Admin: 03/30/18 12:22 Dose: 500 mg Docusate Sodium (Colace) 100 mg PO TID [facility] Last Admin: 03/30/18 11:42 Dose: 100 mg Enoxaparin Sodium (Lovenox) 115 mg SC Q12H SARY PRN Reason: Protocol Furosemide (Lasix) 20 mg IVP DAILY [facility] Last Admin: 03/30/18 11:39 Dose: 20 mg Iron Sucrose 200 mg/ Sodium (Chloride) 110 mls @ 110 mls/hr IVPB DAILY SARY Stop: 04/03/18 10:59 Last Admin: 03/30/18 11:48 Dose: 110 mls/hr Levalbuterol HCl (Xopenex) 0.63 mg IH [id number] [facility] Pantoprazole Sodium (Protonix Ec Tab) 40 mg PO BID [facility] Last Admin: 03/30/18 08:20 Dose: 40 mg Polyethylene Glycol (Miralax) 17 gm PO DAILY [facility] Last Admin: 03/30/18 11:41 Dose: 17 gm Potassium Chloride (K-Dur 20 Meq Er Tab) 20 meq PO BRK [facility] Last Admin: 03/30/18 11:41 Dose: 20 meq - Labs Labs: PT 12.4 SECONDS (9.4-12.5) 03/29/18 22:06 INR 1.09 03/29/18 22:06 APTT 28.1 Seconds (25.1-36.5) 03/29/18 22:06 <Esequiel Buenrostro U - Last Filed: 04/01/18 17:22> Objective - Vital Signs/Intake and Output Vital Signs (last 24 hours): Temp Pulse Resp BP Pulse Ox 98.1 F 98 H 20 131/88 98 04/01/18 14:00 04/01/18 14:00 04/01/18 14:00 04/01/18 14:00 04/01/18 14:00 Intake and Output: 04/01/18 04/01/18 06:59 18:59 Intake Total 360 680 Output Total 750 Balance -390 680 - Labs Labs: 04/01/18 05:45 04/01/18 05:45 PT 12.4 SECONDS (9.4-12.5) 03/29/18 22:06 INR 1.09 03/29/18 22:06 APTT 28.1 Seconds (25.1-36.5) 03/29/18 22:06 Attending/Attestation - Attestation I have personally seen and examined this patient.: Yes I have fully participated in the care of the patient.: Yes I have reviewed all pertinent clinical information, including history, physical exam and plan: Yes Notes (Text): Please see/read my dictated notes.
[2018-03-30] MEDS: Levalbuterol 0.63 MG/3 ML Inhal Soln UD IH SCH ×3 (14:04→20:15)
--- NOTE | 2018-03-30 15:15 | CON ---
Copied To: Angel Floyd MD Attending MD: Angel Floyd MD DATE: 03/30/2018 REQUESTING PHYSICIAN: Dr. Buenrostro. REASON FOR CONSULT: I have been asked to see this 48-year-old female with a history of duodenal ulcer, H. pylori gastritis and iron-deficiency anemia who is admitted to the hospital with dyspnea on exertion, shortness of breath and substernal chest pain. CT angiography was performed and revealed a pulmonary embolus. She denies any melena, rectal bleeding or hematemesis. I spoke with the patient's allergy specialist, Dr. Donnelly who did the endoscopy on 03/03/2018. She was found to have an 8-mm duodenal bulb ulcer with a clean base. She has been treated with pantoprazole and Pylera for the last several weeks. She also had a colonoscopy several months ago. She currently complains of some leg pain. She denies any abdominal pain, nausea or vomiting. PAST MEDICAL HISTORY: Notable for iron deficiency anemia, uterine fibroids, duodenal ulcer, H. pylori gastritis, diverticulosis, hiatal hernia, hemorrhoids. PAST SURGICAL HISTORY: Notable for myomectomy. SOCIAL HISTORY: She consumes alcohol on a social basis. She denies cigarette smoking. FAMILY HISTORY: Notable for mother with hypertension, father with prostate cancer. MEDICATIONS: Include Pylera, pantoprazole, iron, calcium, multivitamins. PHYSICAL EXAMINATION: GENERAL: A well-developed female lying in bed in no acute distress. VITAL SIGNS: Reveal temperature of 99.4, blood pressure 108/60, heart rate of 84. HEENT: Reveal sclerae to be white. Conjunctivae pink. NECK: Supple. CHEST: Lungs are clear. HEART: Exam reveals a regular rate and rhythm. ABDOMEN: Soft, nontender. EXTREMITIES: Show no edema. DATA: Laboratory data reveal hemoglobin 9.9, MCV 71.4, white blood cell count 5.6. Chemistries reveal an iron saturation of 8 percent. Normal electrolytes. IMPRESSION: A 48-year-old female admitted to the hospital with chest pain, shortness of breath, dyspnea on exertion, history of duodenal ulcer diagnosed approximately three weeks ago with acute pulmonary embolus. The ulcer, I suspect, has healed by this point. There is no GI contraindication to anticoagulation at this time. We will need to follow serial hematocrits. RECOMMENDATIONS: Continue pantoprazole 40 mg twice a day, amoxicillin 1 g b.i.d. and Biaxin 500 mg twice a day. Angel Floyd MD
--- NOTE | 2018-03-30 15:30 | CP.PCM.CON ---
History of Present Illness - History of Present Illness History of Present Illness: 48 year old female with a history of chronic iron deficiency anemia, recent duodenal ulcer with H. Pylori infection, presenting with shortness of breath and chest pain, found to have PE. She apparently has been having worsening dypnea with exertion for 2-3 weeks with associated LE swelling. She does admit to on and off calf pain. She was seen at [facility] but left from the ER without LE venous duplex performed. She is currently on therapeutic lovenox and reports to feeling better. Past medical history: iron deficiency anemia, H.Pylori with duodenal ulcer Past surgical history: Uterine fibroid excision Family history: Father with prostate cancer Social history: Denies tobacco, drinks alcohol socially, denies illicit drug use. Allergies: Terbinafine Review of systems: All remaining review of systems including HEENT, cardiovascular, respiratory, gastrointestinal, genitourinary, musculoskeletal, dermatologic, neurologic, and psychiatric are negative unless mentioned in the HPI. Past Patient History - Tetanus Immunizations Tetanus Immunization: Unknown - Past Social History Smoking Status: Never Smoked - CARDIAC Hx Cardiac Disorders: Yes Other/Comment: "PLEBOLITHS" - PULMONARY Hx Bronchitis: Yes Hx Sleep Apnea: Yes - NEUROLOGICAL Hx Neurological Disorder: Yes Hx Vertigo: Yes - HEENT Hx HEENT Problems: No - RENAL Hx Chronic Kidney Disease: No - ENDOCRINE/METABOLIC Hx Endocrine Disorders: No - HEMATOLOGICAL/ONCOLOGICAL Hx Anemia: Yes - INTEGUMENTARY Hx Dermatological Problems: No - MUSCULOSKELETAL/RHEUMATOLOGICAL Hx Arthritis: Yes - GASTROINTESTINAL Hx Diverticulitis: Yes Hx Gastritis: Yes - GENITOURINARY/GYNECOLOGICAL Hx Genitourinary Disorders: Yes Other/Comment: UTERINE FIBROIDS - PSYCHIATRIC Hx Psychophysiologic Disorder: No Hx Substance Use: No - SURGICAL HISTORY Other/Comment: myomectomy - ANESTHESIA Hx Anesthesia: Yes Hx Anesthesia Reactions: No Hx Malignant Hyperthermia: No Meds Allergies/Adverse Reactions: Allergies Allergy/AdvReac Type Severity Reaction Status Date / Time avocado Allergy ANAPHYLAXIS Verified 03/29/18 21:20 terbinafine [From Lamisil] Allergy SWELLING Verified 03/29/18 21:20 - Medications Medications: Current Medications Acetaminophen (Tylenol 325mg Tab) 650 mg PO Q6H PRN PRN Reason: Pain, moderate (4-7) Amoxicillin (Amoxil 500 Mg Cap) 1,000 mg PO Q12 SARY PRN Reason: Protocol Stop: 04/12/18 22:01 Last Admin: 03/30/18 11:41 Dose: 1,000 mg Atorvastatin Calcium (Lipitor) 40 mg PO DIN [facility] Clarithromycin (Biaxin Filmtab) 500 mg PO Q12 SARY PRN Reason: Protocol Stop: 04/12/18 22:01 Last Admin: 03/30/18 12:22 Dose: 500 mg Docusate Sodium (Colace) 100 mg PO TID [facility] Last Admin: 03/30/18 11:42 Dose: 100 mg Enoxaparin Sodium (Lovenox) 115 mg SC Q12H SARY PRN Reason: Protocol Furosemide (Lasix) 20 mg IVP DAILY [facility] Last Admin: 03/30/18 11:39 Dose: 20 mg Iron Sucrose 200 mg/ Sodium (Chloride) 110 mls @ 110 mls/hr IVPB DAILY [facility] Stop: 04/03/18 10:59 Last Admin: 03/30/18 11:48 Dose: 110 mls/hr Levalbuterol HCl (Xopenex) 0.63 mg IH [id number] [facility] Last Admin: 03/30/18 14:09 Dose: Not Given Pantoprazole Sodium (Protonix Ec Tab) 40 mg PO BID [facility] Last Admin: 03/30/18 08:20 Dose: 40 mg Polyethylene Glycol (Miralax) 17 gm PO DAILY [facility] Last Admin: 03/30/18 11:41 Dose: 17 gm Potassium Chloride (K-Dur 20 Meq Er Tab) 20 meq PO BRK [facility] Last Admin: 03/30/18 11:41 Dose: 20 meq Physical Exam - Head Exam Head Exam: ATRAUMATIC - Eye Exam Eye Exam: Normal appearance - ENT Exam ENT Exam: Mucous Membranes Dry - Respiratory Exam Respiratory Exam: NORMAL BREATHING PATTERN - Cardiovascular Exam Cardiovascular Exam: +S1, +S2 - GI/Abdominal Exam GI & Abdominal Exam: Normal Bowel Sounds - Extremities Exam Extremities exam: Positive for: pedal edema - Neurological Exam Neurological exam: Oriented x3 - Psychiatric Exam Psychiatric exam: Normal Affect, Normal Mood - Skin Skin Exam: Warm Results - Vital Signs Recent Vital Signs: Last Vital Signs Temp 99.4 F 03/30/18 12:00 Pulse 84 03/30/18 12:00 Resp 19 03/30/18 12:00 BP 108/60 03/30/18 12:00 Pulse Ox 99 03/30/18 06:00 - Labs Result Diagrams: 03/30/18 16:48 03/29/18 22:06 Labs: Laboratory Results - last 24 hr 03/30/18 03/30/18 03/30/18 03:20 03:20 03:20 Fibrinogen 358 pCO2 pO2 HCO3 ABG pH ABG Total CO2 ABG O2 Saturation ABG O2 Content ABG Base Excess ABG Hemoglobin ABG Carboxyhemoglobin POC ABG HHb (Measured) ABG Methemoglobin ABG O2 Capacity Hgb O2 Saturation FiO2 Hemoglobin A1c 5.8 Phosphorus 3.0 Magnesium 1.9 Iron TIBC % Saturation Ferritin Triglycerides 58 Cholesterol 195 LDL Cholesterol Direct 87 HDL Cholesterol 64 H Vitamin B12 25-OH Vitamin D Total Folate Free T4 TSH 3rd Generation Hepatitis A IgM Ab Hep Bs Antigen Hep B Core IgM Ab Hepatitis C Antibody 03/30/18 03/30/18 03/30/18 03:20 03:20 04:00 Fibrinogen pCO2 pO2 HCO3 ABG pH ABG Total CO2 ABG O2 Saturation ABG O2 Content ABG Base Excess ABG Hemoglobin ABG Carboxyhemoglobin POC ABG HHb (Measured) ABG Methemoglobin ABG O2 Capacity Hgb O2 Saturation FiO2 Hemoglobin A1c Phosphorus Magnesium Iron TIBC % Saturation Ferritin 6.1 Triglycerides Cholesterol LDL Cholesterol Direct HDL Cholesterol Vitamin B12 542 25-OH Vitamin D Total 16.1 L Folate 11.1 Free T4 1.36 TSH 3rd Generation 3.54 Hepatitis A IgM Ab Hep Bs Antigen Hep B Core IgM Ab Hepatitis C Antibody 03/30/18 03/30/18 03/30/18 04:00 04:00 06:30 Fibrinogen pCO2 33 L pO2 97.0 HCO3 23.5 ABG pH 7.46 H ABG Total CO2 24.5 ABG O2 Saturation 99.4 H ABG O2 Content 12.8 L ABG Base Excess 0.0 ABG Hemoglobin 9.3 L ABG Carboxyhemoglobin 1.9 H POC ABG HHb (Measured) 0.6 ABG Methemoglobin 1.0 ABG O2 Capacity 12.9 L Hgb O2 Saturation 96.5 FiO2 28.0 Hemoglobin A1c Phosphorus Magnesium Iron 29 L TIBC 357 % Saturation 8 L Ferritin Triglycerides Cholesterol LDL Cholesterol Direct HDL Cholesterol Vitamin B12 25-OH Vitamin D Total Folate Free T4 TSH 3rd Generation Hepatitis A IgM Ab Negative Hep Bs Antigen Negative Hep B Core IgM Ab Negative Hepatitis C Antibody Negative Assessment & Plan (1) Pulmonary embolism Assessment and Plan: appears unprovoked will check inherited thrombophilia w/u given age; of note protein C+S and antithrombin III may be low from consumptive effect of clot and can be checked at a later date agree with therapeutic anticoagulation; consider outpatient NOAC f/u LE venous duplex Status: Acute (2) Anemia Assessment and Plan: work up consistent with iron deficiency anemia on IV Venofer Thank you for this interesting consult. Status: Acute
--- NOTE | 2018-03-30 15:43 | CT ---
Date of service: 03/30/2018 PROCEDURE: CT HEAD WITHOUT CONTRAST. HISTORY: near syncope COMPARISON: None available. TECHNIQUE: Axial computed tomography images were obtained through the head/brain without intravenous contrast. Radiation dose: Total exam DLP = 888 mGy-cm. This CT exam was performed using one or more of the following dose reduction techniques: Automated exposure control, adjustment of the mA and/or kV according to patient size, and/or use of iterative reconstruction technique. FINDINGS: HEMORRHAGE: No intracranial hemorrhage. BRAIN: No mass effect or edema. No atrophy or chronic microvascular ischemic changes. VENTRICLES: Unremarkable. No hydrocephalus. CALVARIUM: Unremarkable. PARANASAL SINUSES: Unremarkable as visualized. No significant inflammatory changes. MASTOID AIR CELLS: Unremarkable as visualized. No inflammatory changes. OTHER FINDINGS: None. IMPRESSION: No acute findings
[2018-03-30] MEDS: Enoxaparin 120 mg Syringe SC SCH (16:52)
[2018-03-30 17:01] LABS: HEMOGLOBIN 9.9 g/dL (12.0-16.0); MEAN CELL VOLUME 71.5 fl (80.0-105.0); MEAN CORPUSCULAR HEMOGLOBIN 21.4 pg (25.0-35.0); MEAN CORPUSCULAR HGB CONC 29.9 g/dl (31.0-37.0); MEAN PLATELET VOLUME 10.7 fl (7.0-11.0); RBC 4.63 10^6/uL (3.5-6.1); RED CELL DISTRIBUTION WIDTH 17.1 % (11.5-14.5); WHITE BLOOD COUNT 5.9 10^3/ul (4.5-11.0)
[2018-03-30 17:16] LABS: BARBITURATES, UR NEGATIVE (NEGATIVE); BENZODIAZEPINES, UR NEGATIVE (NEGATIVE); OPIATES, UR NEGATIVE (NEGATIVE); PHENCYCLIDINE, UR NEGATIVE (NEGATIVE)
--- NOTE | 2018-03-30 21:00 | CARD ---
APPROVED REPORT Date of service: 03/30/2018 EKG Measurement Heart [id number] ID [id number] <Conclusion> Normal sinus rhythm Normal ECG
[2018-03-31] MEDS: Enoxaparin 120 mg Syringe SC SCH ×2 (00:01→14:19)
[2018-03-31 00:16] LABS: MCH 21.9 pg (27.0-33.0); MCV 71.9 fL (80.0-100.0)
[2018-03-31] MEDS: Levalbuterol 0.63 MG/3 ML Inhal Soln UD IH SCH ×4 (02:22→19:49)
[2018-03-31 06:03] LABS: BASO # 0.02 K/mm3 (0.0-2.0); BASO % 0.4 % (0.0-3.0); EOS # 0.1 (0.0-0.7); EOS % 1.5 % (1.5-5.0); GRAN # 2.45 (1.4-6.5); GRAN % 51.6 % (50.0-68.0); HEMOGLOBIN 9.6 g/dL (12.0-16.0); LYMPH # 1.7 (1.2-3.4); LYMPH % 34.7 % (22.0-35.0); MEAN CELL VOLUME 71.5 fl (80.0-105.0); MEAN CORPUSCULAR HEMOGLOBIN 21.4 pg (25.0-35.0); MEAN CORPUSCULAR HGB CONC 29.9 g/dl (31.0-37.0); MEAN PLATELET VOLUME 10.9 fl (7.0-11.0); MONO # 0.6 (0.1-0.6); MONO % 11.8 % (1.0-6.0); RBC 4.49 10^6/uL (3.5-6.1); RED CELL DISTRIBUTION WIDTH 17.2 % (11.5-14.5); WHITE BLOOD COUNT 4.8 10^3/ul (4.5-11.0)
[2018-03-31 06:34] LABS: ALBUMIN 3.8 g/dL (3.0-4.8); ALT/SGPT 21 U/L (7-56); AST/SGOT 23 U/L (14-36); BILIRUBIN,DIRECT 0.2 mg/dL (0.0-0.4); BLOOD UREA NITROGEN 13 mg/dL (7-21); CALCIUM 9.1 mg/dL (8.4-10.5); GFR AFRICAN-AMERICAN > 60; GFR NON-AFRICAN AMERICAN > 60
[2018-03-31 07:00] LABS: SICKLE CELL SCREEN Negative (Negative)
[2018-03-31] MEDS: Potassium Chloride 20 mEq ER Tab PO SCH (08:14)
[2018-03-31] MEDS ORDERED: Ergocalciferol 50,000 Intl Units Cap PO SCH (08:15)
--- NOTE | 2018-03-31 10:04 | CARD ---
APPROVED REPORT Date of service: 03/30/2018 EXAM: Two-dimensional and M-mode echocardiogram with Doppler and color Doppler. INDICATION PULMONARY EMBOLISM, R/O RV DYSFUNCTION 2D DIMENSIONS Left Atrium (2D)3.2 (1.6-4.0cm)IVSd0.9 (0.7-1.1cm) LVDd4.8 (3.9-5.9cm)PWd0.9 (0.7-1.1cm) LVDs3.3 (2.5-4.0cm)FS (%) 31.0 % LVEF (%)58.4 (>50%) M-Mode DIMENSIONS Aortic Root3.00 (2.2-3.7cm)Aortic Cusp Exc.2.10 (1.5-2.0cm) Aortic Valve AoV Peak Aolrjvtk506.0cm/Melisa Peak GR.8mmHg Mitral Valve MV E Qajypote87.2cm/sMV A Djfrvtjt01.9cm/sE/A ratio1.2 TDI Lateral E' Peak V11.70cm/sMedial E' Peak V6.34cm/sE/Lateral E'5.1 E/Medial E'9.5 Tricuspid Valve TR Peak [id number]/sRAP [id number] Peak Gr.21mmHg [id number] LEFT VENTRICLE The left ventricle is normal size. There is normal left ventricular wall thickness. The left ventricular function is normal.EF-55-60% There is normal LV segmental wall motion. The left ventricular diastolic function is normal. No left ventricle thrombus noted on this study. There is no ventricular septal defect visualized. There is no left ventricular aneurysm. There is no mass noted in the left ventricle. RIGHT VENTRICLE The right ventricle is normal size. There is normal right ventricular wall thickness. The right ventricular systolic function is normal. ATRIA The left atrium size is normal. The right atrium size is normal. The interatrial septum is intact with no evidence for an atrial septal defect. The atrial septum is aneurysmal. AORTIC VALVE The aortic valve is normal in structure. No aortic regurgitation is present. There is no aortic valvular stenosis. There is no aortic valvular vegetation. MITRAL VALVE The mitral valve is normal in structure. Mitral regurgitation is trace. There is no mitral valve stenosis. There is no evidence of mitral valve prolapse. TRICUSPID VALVE The tricuspid valve is normal in structure. There is trace tricuspid regurgitation.RVSP-31 mmof hg. . There is no tricuspid valve stenosis. There is no tricuspid valve prolapse or vegetation. PULMONIC VALVE The pulmonary valve is normal in structure. There is trace pulmonic valvular regurgitation. There is no pulmonic valvular stenosis. GREAT VESSELS The aortic root is normal in size. The ascending aorta is normal in size. The pulmonary artery is normal. The IVC is normal in size and collapses >50% with inspiration. PERICARDIAL EFFUSION There is no pleural effusion. There is no pericardial effusion. <Conclusion> normal chamber Size, EF-55-60% Trace MR/TR RVSP-31 mm of Hg. No vegetation or thrombus noted. There is trace pulmonic valvular regurgitation. The interatrial septum is intact with no evidence for an atrial septal defect. The atrial septum is aneurysmal.
[2018-03-31] MEDS: POLYETHYLENE GLYCOL 3350 17 GM/Dose PACKET PO SCH (10:09)
[2018-03-31] MEDS: Pantoprazole 40 mg EC Tab PO SCH ×2 (10:10→17:41)
--- NOTE | 2018-03-31 11:09 | PN ---
Copied To: Angel Floyd MD Attending MD: Angel Floyd MD DATE: 03/31/2018 SUBJECTIVE: The patient is lying in bed. She feels much better. The pain behind her left thigh has improved. She denies any shortness of breath. Her breathing is much improved. She denies any rectal bleeding or melena. PHYSICAL EXAMINATION: VITAL SIGNS: Reveal temperature of 98, blood pressure 116/67, heart rate of 71. HEENT: Reveals sclerae to be white. Conjunctivae pale. NECK: Supple. CHEST: Lungs are clear. HEART: Reveals a regular rate and rhythm. ABDOMEN: Soft, nontender. EXTREMITIES: Show no edema. There is no palpable cord in her legs. LABORATORY DATA: Reveals white blood cell count of 4.8, hemoglobin 9.6. Chemistries reveal normal electrolytes. IMPRESSION: A 48-year-old female, admitted to the hospital with sudden onset of shortness of breath and chest pain, found to have a pulmonary embolus. The patient is clinically improving. She was recently diagnosed to have a duodenal ulcer about 3 weeks ago with Helicobacter pylori gastritis. The ulcer at this point should be healed. There is a low risk of bleeding from this area. 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 At this point, there is no GI contraindication to anticoagulation. Her CBC will need to be followed closely. She will need to be observed for GI bleeding as well as vaginal bleeding. RECOMMENDATIONS: 1. Continue anticoagulation and follow CBC. 2. Continue PPI and iron. Angel Floyd MD
[2018-03-31 17:11] LABS: HEMOGLOBIN A 97.1 Percent (>96.0); HEMOGLOBIN A2 1.9 Percent (1.8-3.5)
[2018-04-01] MEDS: Enoxaparin 120 mg Syringe SC SCH (00:20)
[2018-04-01 00:55] LABS: URINE BILIRUBIN NEGATIVE (NEGATIVE); URINE BLOOD NEGATIVE (NEGATIVE); URINE GLUCOSE (UA) NEGATIVE (NEGATIVE); URINE LEUKOCYTE ESTERASE NEGATIVE Leu/uL (NEGATIVE); URINE PROTEIN NEGATIVE mg/dL (<30 mg/dL); URINE UROBILINOGEN 0.2 E.U./dL (<1 E.U./dL)
[2018-04-01 01:02] LABS: URINE APPEARANCE CLEAR (CLEAR); URINE COLOR YELLOW (YELLOW)
--- NOTE | 2018-04-01 02:12 | PN ---
Copied To: Esequiel Buenrostro MD Attending MD: Esequiel Buenrostro MD DATE: 03/31/2018 LOCATION: The patient is seen in room 265, bed 1. SUBJECTIVE: The patient is again seen lying in the bed. Yesterday's event was noted. The patient had a near syncopal episode but denies any syncope or loss of consciousness. The patient's all the symptoms from yesterday have resolved. The patient's leg pain has almost resolved. The patient denies any shortness of breath. REVIEW OF SYSTEMS: Thirteen-system review was done, pertinent positive and negative dictated above. PHYSICAL EXAMINATION: VITAL SIGNS: Shows telemetry normal sinus rhythm; T max is 98.6; heart rate 74, 82, 85, 86, 100; blood pressure 108/71, 117/69; respiration 18; O2 sat 96%. HEENT: Head: Normocephalic, atraumatic. Pinkish pale conjunctivae. Anicteric sclerae. No oropharyngeal lesion. No neck rigidity. CHEST: Kyphosis. LUNGS: Occasional rhonchi upper lung tinajero bilaterally. CARDIOVASCULAR: S1, S2, regular rhythm. ABDOMEN: Soft and protuberant, obese. No hepatosplenomegaly noted. GENITALIA: Female. RECTAL: Deferred. EXTREMITIES: No pitting edema, trace swelling of the lower extremity which is significantly less since the time of admission. MUSCULOSKELETAL: Elevated body mass index with a BMI of 43 and body weight of 247 pounds. NEUROLOGIC: The patient is alert, awake, and oriented x3. Cranial nerves II-XII grossly intact. Motor strength is 5/5 in the upper and lower extremities. The patient is able to ambulate from out of bed to chair. DIAGNOSTICS: On 03/31, WBC 4.8, hemoglobin/hematocrit 9.6 and 32.1, MCV 71, platelet 290. Sickle cell screen is negative. Hemoglobin electrophoresis shows normal pattern. Sodium 139, potassium 4, chloride 103, CO2 26, anion gap 14, BUN 13, creatinine 0.9, GFR greater than 60, glucose 99, calcium 9.1, magnesium 2, iron 29, iron saturation 8, erythropoietin 77, ferritin is 6.1. LFTs are normal. Troponin is negative. Vitamin D 25-hydroxy is 16.1. Vitamin B12 is within normal limit. Cholesterol 195, LDL 87, HDL 64. Urine drug screen negative. Hepatitis A, B serologies and HIV negative. CT of the head was negative. Echocardiogram results were reviewed. Ejection fraction 58%. Right ventricular systolic pressure 31 mmHg. EKG was normal sinus rhythm. IMPRESSION: 1. Unprovoked pulmonary embolism, etiology undetermined. 2. Right lower lobe unprovoked pulmonary embolism in the distal segmental branches of the right lobe, questionable left atrial enlargement. 3. Elevated D-dimer. 4. Microcytic iron-deficiency anemia. 5. History of recently diagnosed Helicobacter pylori gastritis, duodenitis and gastric and duodenal ulcer. 6. History of diverticulitis. 7. Questionable near syncope. 8. Microcytic anemia. 9. Hyperlipidemia with elevated LDL. 10. Hypovitaminosis D. 11. Left ventricular ejection fraction of 58%. 12. Trace mitral regurgitation. 13. Trace tricuspid regurgitation. 14. Trace pulmonic regurgitation. 15. History of menorrhagia. 1. Right lower lobe pulmonary embolism in the distal segmental branches of the right lower lobe, probably unprovoked, etiology in question at that time. 2. Questionable left atrial enlargement. 3. Elevated D-dimer. 4. Microcytic iron-deficiency anemia. 5. History of Helicobacter pylori gastritis and gastric ulcer, history of diverticulitis, history of iron-deficiency anemia, history of menorrhagia, history of hiatal hernia, history of uterine fibroid, history of laparotomy myomectomy for uterine fibroid. PLAN: At this time, the patient has been ordered repeat labs. Gastroenterology, Hematology/Oncology consultation noted. Current medications, amoxicillin 1000 mg twice a day for 2 weeks, Biaxin 500 mg twice a day for 2 weeks, Colace 100 mg three times a day, Drisdol 50,000 Units weekly, Venofer 200 mg IV daily, K-Dur 20 mEq daily, Lasix 20 mg IV daily, Lipitor 40 mg daily, Lovenox subcu every 12 hours, MiraLax 17 g daily, Protonix 40 mg twice a day, Xopenex nebulizer 0.63 mg every 6 hours. Heart-healthy diet. The patient has been ordered out of bed to chair. The patient has been encouraged to ambulate. The patient's telemetry will be discontinued as the patient is clinically stable. The patient will be continued on the above therapeutic intervention. Once the patient is cleared by all subspecialty, the patient will be considered for discharge. The patient updated about her condition, diagnoses, treatment plan, management plan, etc. in detail. All questions concerned answered. The patient was advised increase activity and upon discharge, the patient was also advised to lose weight. The patient was advised the details of anticoagulation treatment, the risk of bleeding was explained. The patient was advised close outpatient followup. The patient was also advised outpatient Hematology/Oncology followup for the determination of the anticoagulation duration. Dictated and electronically signed, not read. Esequiel Buenrostro MD JERMAINE
[2018-04-01] MEDS: Levalbuterol 0.63 MG/3 ML Inhal Soln UD IH SCH ×3 (02:40→13:22)
[2018-04-01 06:42] LABS: BASO # 0.02 K/mm3 (0.0-2.0); BASO % 0.4 % (0.0-3.0); EOS % 0.8 % (1.5-5.0); GRAN # 2.47 (1.4-6.5); GRAN % 46.7 % (50.0-68.0); HEMOGLOBIN 9.4 g/dL (12.0-16.0); LYMPH # 2.1 (1.2-3.4); LYMPH % 40.2 % (22.0-35.0); MEAN CELL VOLUME 72.2 fl (80.0-105.0); MEAN CORPUSCULAR HEMOGLOBIN 21.2 pg (25.0-35.0); MEAN CORPUSCULAR HGB CONC 29.4 g/dl (31.0-37.0); MEAN PLATELET VOLUME 10.6 fl (7.0-11.0); MONO # 0.6 (0.1-0.6); MONO % 11.9 % (1.0-6.0); RBC 4.43 10^6/uL (3.5-6.1); RED CELL DISTRIBUTION WIDTH 17.2 % (11.5-14.5); WHITE BLOOD COUNT 5.3 10^3/ul (4.5-11.0)
[2018-04-01 07:13] LABS: ALB/GLOB RATIO 1.1 (1.1-1.8); ALBUMIN 3.7 g/dL (3.0-4.8); ALT/SGPT 27 U/L (7-56); AST/SGOT 34 U/L (14-36); BILIRUBIN,DIRECT 0.1 mg/dL (0.0-0.4); BLOOD UREA NITROGEN 12 mg/dL (7-21); CALCIUM 9.1 mg/dL (8.4-10.5); GFR AFRICAN-AMERICAN > 60; GFR NON-AFRICAN AMERICAN > 60
[2018-04-01 07:39] VITALS: RESP 20
[2018-04-01] MEDS: Pantoprazole 40 mg EC Tab PO SCH ×2 (08:07→10:15)
[2018-04-01] MEDS: Potassium Chloride 20 mEq ER Tab PO SCH (08:08)
--- NOTE | 2018-04-01 09:06 | PN ---
Copied To: Angel Floyd MD Attending MD: Angel Floyd MD DATE: 04/01/2018 SUBJECTIVE: The patient is lying in bed with multiple somatic complaints. She complains of headaches, pain in the back of her head, a burning sensation in her throat. She denies any melena, abdominal pain or rectal bleeding. She denies any nausea or vomiting. OBJECTIVE: VITAL SIGNS: Reveal temperature of 99, blood pressure 100/50, heart rate of 79. HEENT: Reveal sclerae to be white. Oral mucosa is moist. NECK: Supple. CHEST: Lungs are clear. HEART: Exam reveals a regular rate and rhythm. ABDOMEN: Obese, soft, nontender. EXTREMITIES: Show no edema. DATA: Laboratory data reveal hemoglobin 9.4, this has remained stable over the last 72 hours. Chemistries reveal normal electrolytes. IMPRESSION: 1. Pulmonary embolus. 2. Duodenal ulcer with an Helicobacter pylori gastritis. 3. Chronic iron-deficiency anemia, most likely secondary to menstrual blood loss. She is known to have uterine fibroids. RECOMMENDATIONS: 1. Continue PPI. 2. Continue to follow serial hematocrits. 3. Continue iron replacement. 4. Continue amoxicillin and clarithromycin as treatment for H. pylori. 5. The patient can be started on anticoagulation with close monitoring of her CBC. Her duodenal ulcer is most likely healed at this point. Angel Floyd MD
[2018-04-01] MEDS: POLYETHYLENE GLYCOL 3350 17 GM/Dose PACKET PO SCH (10:21)
--- NOTE | 2018-04-01 10:26 | CT ---
Date of service: 04/01/2018 PROCEDURE: CT HEAD WITHOUT CONTRAST. HISTORY: ??BLEED COMPARISON: 03/30/2018 TECHNIQUE: Axial computed tomography images were obtained through the head/brain without intravenous contrast. Radiation dose: Total exam DLP = 819.99 mGy-cm. This CT exam was performed using one or more of the following dose reduction techniques: Automated exposure control, adjustment of the mA and/or kV according to patient size, and/or use of iterative reconstruction technique. FINDINGS: HEMORRHAGE: No intracranial hemorrhage. BRAIN: No mass effect or edema. No atrophy or chronic microvascular ischemic changes. VENTRICLES: Unremarkable. No hydrocephalus. CALVARIUM: Unremarkable. PARANASAL SINUSES: Unremarkable as visualized. No significant inflammatory changes. MASTOID AIR CELLS: Unremarkable as visualized. No inflammatory changes. OTHER FINDINGS: None. IMPRESSION: Normal CT of the Head. No intracranial mass, hemorrhage or evidence of acute infarct. No interval change.
--- NOTE | 2018-04-01 12:46 | DS ---
Copied To: Esequiel Buenrostro MD Attending MD: Esequiel Buenrostro MD FINAL PROGRESS NOTE AND DISCHARGE SUMMARY HISTORY OF PRESENT ILLNESS: The patient is seen in room 565, bed 1 and the patient was also seen in the Radiology area according to the patient's nurses and the patient. The patient complained of some posterior occipital headache, lumpy feeling in the back of the head and neck, also complained of lumpy feeling in the legs. The patient states that she is feeling like she is bleeding inside the body and the head. The patient's symptoms were totally very subjective and the patient's clinical examination was completely negative and normal. There were neurologic deficits noted on her clinical examination. The patient's neuro examination was without any gross deficits. The patient also complained of some metallic taste in the mouth after taking the amoxicillin and Biaxin and felt palpitation, but the heart rate was found to be 78 at that point and O2 sat was 98%. The patient slept during the night according to the nurses' notes. PHYSICAL EXAMINATION: VITAL SIGNS: T-max is 98.6, pulse 79, blood pressure 121/78, respiration 20, O2 sat 95%. HEENT: Head: Normocephalic, atraumatic. No oropharyngeal lesion. No lumps, bumps noted on the scalp and the neck. No neck rigidity. Pinkish pale conjunctivae. Anicteric sclerae. CHEST: Symmetrical. LUNGS: No rales, crackles or wheezing. CARDIOVASCULAR: S1, S2, regular rhythm. ABDOMEN: Soft, obese. Positive bowel sounds. GENITALIA: Female. RECTAL: Deferred. EXTREMITIES: Completely resolved swelling and pitting edema of the lower extremities. MUSCULOSKELETAL: Body mass index of 42.4. The patient's body weight is 247. NEUROLOGIC: The patient is completely alert, awake, responsive, oriented x3. Motor strength is 5/5 in upper and lower extremities. Gait examination is independent. VASCULAR: Palpable pulses. DIAGNOSTICS: 04/01, WBC 5.3, hemoglobin/hematocrit is stable at 9.4/32, platelet 274. Sickle cell screen was negative. Chemistry on 04/01, sodium 139, potassium 3.9, chloride 103, CO2 27, anion gap 13, BUN 12, creatinine 0.9, GFR greater than 60, glucose 94, calcium 9.1. LFTs are normal. Urinalysis negative. Urine drug screen negative. Hepatitis A, B, C serologies and HIV negative. The patient underwent a repeat CT head for the complaints of headache and the patient stating that she feels bleeding inside the head. CT head was done stat today, which was no bleeding, no edema, the patient's of the head was negative. Vitamin D is low at 16.1. FINAL IMPRESSION, PLAN AND DISCHARGE DIAGNOSES: 1. Unprovoked right lower lobe distal segmental branch pulmonary embolism with symptoms of shortness of breath and bilateral lower extremity swelling. 2. Subjective headache. 3. Elevated D-dimer, etiology undetermined. 4. Morbid obesity with elevated body mass index of 43. 5. Microcytic iron-deficiency anemia. 6. Hypovitaminosis D. 7. Hyperlipidemia. 8. Left ventricular ejection fraction of 58%. 9. Trace mitral regurgitation. 10. Trace tricuspid regurgitation. 11. Aneurysmal atrial septum. 12. History of duodenal ulcer and Helicobacter pylori gastritis. 13. Irregular menstrual cycle with menorrhagia. 14. Uterine fibroid. 1. Unprovoked pulmonary embolism, etiology undetermined. 2. Right lower lobe unprovoked pulmonary embolism in the distal segmental branches of the right lobe, questionable left atrial enlargement. 3. Elevated D-dimer. 4. Microcytic iron-deficiency anemia. 5. History of recently diagnosed Helicobacter pylori gastritis, duodenitis and gastric and duodenal ulcer. 6. History of diverticulitis. 7. Questionable near syncope. 8. Microcytic anemia. 9. Hyperlipidemia with elevated LDL. 10. Hypovitaminosis D. 11. Left ventricular ejection fraction of 58%. 12. Trace mitral regurgitation. 13. Trace tricuspid regurgitation. 14. Trace pulmonic regurgitation. 15. History of menorrhagia. 1. Right lower lobe pulmonary embolism in the distal segmental branches of the right lower lobe, probably unprovoked, etiology in question at that time. 2. Questionable left atrial enlargement. 3. Elevated D-dimer. 4. Microcytic iron-deficiency anemia. 5. History of Helicobacter pylori gastritis and gastric ulcer, history of diverticulitis, history of iron-deficiency anemia, history of menorrhagia, history of hiatal hernia, history of uterine fibroid, history of laparotomy myomectomy for uterine fibroid. PLAN: At present, the patient was cleared by Hematology/Oncology and Gastroenterology for discharge. The patient's discharge medications are as follows, Prevpac including amoxicillin 1000 mg twice a day for 14 days. The patient was given Eliquis 10 mg twice a day, first dose to be started before discharge twice a day for 1 week and the patient was advised to follow up in the office within 1 week for subsequent prescription of Eliquis. The patient is to be discharged on Lipitor 40 mg daily, Biaxin 500 mg twice a day, Colace 100 mg three times a day, Drisdol 50,000 Units weekly, Linzess 145 mcg daily, Protonix 40 mg twice a day. The patient was strictly advised to follow up within [address] Buenrostro and also follow up with Hematology. The patient was advised weight loss. The patient was advised to resume normal activity. The patient is to be discharged home with all these prescriptions as per the ambulatory orders. The patient was advised close outpatient followup. During this hospitalization, the patient was extensively explained about the details of her medical condition, diagnostic test results and use of anticoagulation with associated risk of bleeding. All detailed discussion explained to the patient at length on a daily basis and all questions concerned answered to the patient's satisfaction. Time spent in the discharge process 45 minutes. Dictated and electronically signed, not read. Esequiel Buenrostro MD MTDD
--- NOTE | 2018-04-01 12:58 | CP.PCM.PN ---
Subjective - Date & Time of Evaluation Date of Evaluation: 03/31/18 Time of Evaluation: 15:00 - Subjective Subjective: Feeling better. Objective - Vital Signs/Intake and Output Vital Signs (last 24 hours): Temp Pulse Resp BP Pulse Ox 99 F 79 20 121/78 95 04/01/18 06:00 04/01/18 08:29 04/01/18 06:00 04/01/18 10:21 04/01/18 06:00 Intake and Output: 04/01/18 04/01/18 06:59 18:59 Intake Total 360 360 Output Total 750 Balance -390 360 - Medications Medications: Current Medications Acetaminophen (Tylenol 325mg Tab) 650 mg PO Q6H PRN PRN Reason: Pain, moderate (4-7) Last Admin: 04/01/18 10:40 Dose: 650 mg Amoxicillin (Amoxil 500 Mg Cap) 1,000 mg PO Q12 [facility]ARY PRN Reason: Protocol Stop: 04/12/18 22:01 Last Admin: 04/01/18 10:23 Dose: 1,000 mg Apixaban (Eliquis) 10 mg PO BID [facility]ARY PRN Reason: Protocol Last Admin: 04/01/18 10:26 Dose: 10 mg Atorvastatin Calcium (Lipitor) 40 mg PO DIN [facility] Last Admin: 03/31/18 17:40 Dose: 40 mg Clarithromycin (Biaxin Filmtab) 500 mg PO Q12 [facility]ARY PRN Reason: Protocol Stop: 04/12/18 22:01 Last Admin: 04/01/18 10:23 Dose: 500 mg Docusate Sodium (Colace) 100 mg PO TID [facility] Last Admin: 04/01/18 10:23 Dose: 100 mg Ergocalciferol (Drisdol 50,000 Intl Units Cap) 1 cap PO Q7D [facility] Last Admin: 03/31/18 10:13 Dose: 1 cap Furosemide (Lasix) 20 mg IVP DAILY [facility] Last Admin: 04/01/18 10:21 Dose: 20 mg Iron Sucrose 200 mg/ Sodium (Chloride) 110 mls @ 110 mls/hr IVPB DAILY [facility] Stop: 04/03/18 10:59 Last Admin: 04/01/18 10:19 Dose: 110 mls/hr Levalbuterol HCl (Xopenex) 0.63 mg IH [id number] [facility] Last Admin: 04/01/18 08:10 Dose: 0.63 mg Pantoprazole Sodium (Protonix Ec Tab) 40 mg PO BID [facility] Last Admin: 04/01/18 10:15 Dose: Not Given Polyethylene Glycol (Miralax) 17 gm PO DAILY [facility] Last Admin: 04/01/18 10:21 Dose: 17 gm Potassium Chloride (K-Dur 20 Meq Er Tab) 20 meq PO BRK [facility] Last Admin: 04/01/18 08:08 Dose: 20 meq - Labs Labs: 04/01/18 05:45 04/01/18 05:45 PT 12.4 SECONDS (9.4-12.5) 03/29/18 22:06 INR 1.09 03/29/18 22:06 APTT 28.1 Seconds (25.1-36.5) 03/29/18 22:06 - Head Exam Head Exam: ATRAUMATIC - Eye Exam Eye Exam: Normal appearance - ENT Exam ENT Exam: Mucous Membranes Dry - Respiratory Exam Respiratory Exam: NORMAL BREATHING PATTERN - Cardiovascular Exam Cardiovascular Exam: +S1, +S2 - GI/Abdominal Exam GI & Abdominal Exam: Normal Bowel Sounds - Extremities Exam Extremities Exam: Pedal Edema Assessment and Plan (1) Pulmonary embolism Assessment & Plan: unprovoked therapeutic anticoagulation outpatient f/u of inherited thrombophilia w/u Status: Acute (2) Anemia Assessment & Plan: iron deficiency s/p IV iron Status: Acute
--- NOTE | 2018-04-01 12:59 | CP.PCM.PN ---
Subjective - Date & Time of Evaluation Date of Evaluation: 04/01/18 Time of Evaluation: 10:00 - Subjective Subjective: Feeling better Objective - Vital Signs/Intake and Output Vital Signs (last 24 hours): Temp Pulse Resp BP Pulse Ox 99 F 79 20 121/78 95 04/01/18 06:00 04/01/18 08:29 04/01/18 06:00 04/01/18 10:21 04/01/18 06:00 Intake and Output: 04/01/18 04/01/18 06:59 18:59 Intake Total 360 360 Output Total 750 Balance -390 360 - Medications Medications: Current Medications Acetaminophen (Tylenol 325mg Tab) 650 mg PO Q6H PRN PRN Reason: Pain, moderate (4-7) Last Admin: 04/01/18 10:40 Dose: 650 mg Amoxicillin (Amoxil 500 Mg Cap) 1,000 mg PO Q12 [facility] PRN Reason: Protocol Stop: 04/12/18 22:01 Last Admin: 04/01/18 10:23 Dose: 1,000 mg Apixaban (Eliquis) 10 mg PO BID [facility] PRN Reason: Protocol Last Admin: 04/01/18 10:26 Dose: 10 mg Atorvastatin Calcium (Lipitor) 40 mg PO DIN [facility] Last Admin: 03/31/18 17:40 Dose: 40 mg Clarithromycin (Biaxin Filmtab) 500 mg PO Q12 [facility] PRN Reason: Protocol Stop: 04/12/18 22:01 Last Admin: 04/01/18 10:23 Dose: 500 mg Docusate Sodium (Colace) 100 mg PO TID [facility] Last Admin: 04/01/18 10:23 Dose: 100 mg Ergocalciferol (Drisdol 50,000 Intl Units Cap) 1 cap PO Q7D [facility] Last Admin: 03/31/18 10:13 Dose: 1 cap Furosemide (Lasix) 20 mg IVP DAILY [facility] Last Admin: 04/01/18 10:21 Dose: 20 mg Iron Sucrose 200 mg/ Sodium (Chloride) 110 mls @ 110 mls/hr IVPB DAILY [facility] Stop: 04/03/18 10:59 Last Admin: 04/01/18 10:19 Dose: 110 mls/hr Levalbuterol HCl (Xopenex) 0.63 mg IH [id number] [facility] Last Admin: 04/01/18 08:10 Dose: 0.63 mg Pantoprazole Sodium (Protonix Ec Tab) 40 mg PO BID [facility] Last Admin: 04/01/18 10:15 Dose: Not Given Polyethylene Glycol (Miralax) 17 gm PO DAILY [facility] Last Admin: 04/01/18 10:21 Dose: 17 gm Potassium Chloride (K-Dur 20 Meq Er Tab) 20 meq PO BRK [facility] Last Admin: 04/01/18 08:08 Dose: 20 meq - Labs Labs: 04/01/18 05:45 04/01/18 05:45 PT 12.4 SECONDS (9.4-12.5) 03/29/18 22:06 INR 1.09 03/29/18 22:06 APTT 28.1 Seconds (25.1-36.5) 03/29/18 22:06 - Head Exam Head Exam: ATRAUMATIC - Eye Exam Eye Exam: Normal appearance - ENT Exam ENT Exam: Mucous Membranes Dry - Respiratory Exam Respiratory Exam: NORMAL BREATHING PATTERN - Cardiovascular Exam Cardiovascular Exam: +S1, +S2 - GI/Abdominal Exam GI & Abdominal Exam: Normal Bowel Sounds Assessment and Plan (1) Pulmonary embolism Assessment & Plan: unprovoked on therapeutic anticoagulation outpatient f/u if inherited thrombophilia w/u Status: Acute (2) Anemia Assessment & Plan: iron deficiency on IV iron Status: Acute
[2018-04-01 14:05] VITALS: BP 131/88; PULSE 98; TEMP 98.1; O2SAT 98
== END 2018-04-01 14:51 | disposition home or self-care (01) | DRG 176 ==
LOC: ED 20:58 → ERH 03-30 00:29 → 2RNO 03-30 01:33 → 5RNO 03-31 23:33
PROVIDERS: ADMIT Internal Medicine; ATTEND Internal Medicine
DX: I26.99 Other pulmonary embolism without acute cor pulmonale (principal); Z68.41 Body mass index [BMI] 40.0-44.9, adult; E66.01 Morbid (severe) obesity due to excess calories; R79.1 Abnormal coagulation profile; R51 Headache; D50.9 Iron deficiency anemia, unspecified; E55.9 Vitamin D deficiency, unspecified; E78.5 Hyperlipidemia, unspecified; I08.1 Rheumatic disorders of both mitral and tricuspid valves; K26.9 Duodenal ulcer, unspecified as acute or chronic, without hemorrhage or perforation; K29.70 Gastritis, unspecified, without bleeding; B96.81 Helicobacter pylori [H. pylori] as the cause of diseases classified elsewhere; E78.00 Pure hypercholesterolemia, unspecified; G47.30 Sleep apnea, unspecified; K44.9 Diaphragmatic hernia without obstruction or gangrene; R53.82 Chronic fatigue, unspecified; Z79.899 Other long term (current) drug therapy; Z87.01 Personal history of pneumonia (recurrent); Z82.49 Family history of ischemic heart disease and other diseases of the circulatory system; Z80.42 Family history of malignant neoplasm of prostate; Z87.19 Personal history of other diseases of the digestive system

== ENCOUNTER 2018-12-15 18:20 | Outpatient (CLI) | payer BC | END 2018-12-15 18:21 | disposition home or self-care (01) | LOC: RAD 18:20 ==

== ENCOUNTER → 2018-12-21 | Outpatient (CLI) | payer BC | LOC: RAD 07:37 | DX: N92.0 Excessive and frequent menstruation with regular cycle (principal) ==

== ENCOUNTER 2018-12-23 10:11 | Outpatient (CLI) | payer BC | END 2018-12-23 10:12 | disposition home or self-care (01) | LOC: RAD 10:11 | DX: N60.11 Diffuse cystic mastopathy of right breast (principal); N60.12 Diffuse cystic mastopathy of left breast ==